=== PATIENT | female | born 1995 | race American Indian/Alaskan Native ===

== ENCOUNTER 2016-08-15 20:42 | Emergency (ER) | payer MEDICAID ==
[2016-08-15 20:42] VITALS: BMI 37.1
[2016-08-15 20:55] VITALS: BP 140/78; PULSE 93; RESP 18; TEMP 98.1; O2SAT 99
--- NOTE | 2016-08-15 21:11 | ED PDOC ---
Arrival/HPI - General Historian: Patient - History of Present Illness Time/Duration: 24 hours Symptom Course: Unchanged <María Elena Ho - Last Filed: 08/15/16 21:56> <Golden Humphreys - Last Filed: 08/15/16 22:09> - General Chief Complaint: Female Genitourinary Time Seen by Provider: 08/15/16 20:56 - History of Present Illness Narrative History of Present Illness (Text): 08/15/16 21:07 20 yo F w h/o previous UTIs and vaginal yeast infections presents with dysuria, frequency and hematuria x 1 day. Patient states she started feeling dysuria yesterday, some small amount of pinkish blood with urination and urinary frequency since this morning. Patient states she has had multiple UTIs in the past, last UTI 6 months ago. Patient denies vaginal discharge or bleeding. First day LMP 08/07/2016. Patient states her symptoms feel just like previous UTIs and states she has had blood in her urine with previous UTIs as well. Admits to mild suprapubic abdominal pain. Has not taken anything to help with symptoms. Patient states last abx was 6 months ago, has not been on abx since that time. Patient has a PMD but states she did not see him because she didnt think he could treat a UTI. Patient denies CP, SOB, n/v/d/c, fevers, chills, edema, rashes, headache, dizziness, confusion. (María Elena Ho) Past Medical History - Infectious Disease Hx of Infectious Diseases: None - Tetanus Immunization Tetanus Immunization: Unknown - Pulmonary Hx Respiratory Disorders: No - Psychiatric Hx Depression: No Hx Substance Use: Yes - Surgical History Hx Dilation and Curettage: Yes Hx Tonsillectomy: Yes - Anesthesia Hx Anesthesia: Yes Hx Anesthesia Reactions: No Hx Malignant Hyperthermia: No - Suicidal Assessment Feels Threatened In Home Enviroment: No <María Elena Ho - Last Filed: 08/15/16 21:56> Family/Social History - Physician Review Nursing Documentation Reviewed: Yes Family/Social History: No Known Family HX Smoking Status: Light Smoker < 10 Cigarettes Daily Hx Alcohol Use: Yes Hx Substance Use: Yes Hx Substance Use Treatment: No <María Elena Ho - Last Filed: 08/15/16 21:56> Allergies/Home Meds <María Elena Ho - Last Filed: 08/15/16 21:56> <Golden Humphreys - Last Filed: 08/15/16 22:09> Allergies/Adverse Reactions: Allergies No Known Allergies Allergy (Verified 08/08/15 20:36) Medical Decision Making <María Elena Ho - Last Filed: 08/15/16 21:56> <Golden Humphreys - Last Filed: 08/15/16 22:09> ED Course and Treatment: 08/15/16 21:46 20 yo F w UTI. Will treat with 10 days Macrobid. Gave one dose tylenol for mild abdominal pain. Patient requests diflucan in case she develops yeast infection, which she has had in the past after antibiotics. Risks of diflucan use, including but not limited to liver damage, abdominal pain, nausea, headache, dizziness, palpitations, etc. discussed with patient. She verbalizes understanding of risks and (María Elena Ho) 08/15/16 22:07 Patient seen and examined with biomedical engineering internship. Treatment plan developed together. Patient is afebrile, nontoxic appearing. Mild suprapubic pain. NO cva tenderness. Tolerating po. UA suggestive of UTI. Denies vaginal discharge or lesions. Stressed need for urology follow-up, discussed antibiotic choice as well as follow-up of urine culture. Risks/side effects of prescribed medication d/w patient, advised urology and gynecology follow-up. (Golden Humphreys) - Lab Interpretations Lab Results: Lab Results 08/15/16 20:55: Urine Color Yellow, Urine Appearance Cloudy, Urine pH 7.0, Ur Specific [place] 1.020, Urine Protein 30 H, Urine Glucose (UA) Negative, Urine Ketones Trace H, Urine Blood Large H, Urine Nitrate Negative, Urine Bilirubin Negative, Urine Urobilinogen 0.2, Ur Leukocyte Esterase Large H, Urine RBC Tntc , Urine WBC Tntc, Ur Epithelial Cells 0 - 2, Urine Bacteria Many, Urine HCG, Qual Negative - Medication Orders Current Medication Orders: Discontinued Medications Acetaminophen (Tylenol 325mg Tab) 650 mg PO STAT STA Stop: 08/15/16 21:22 Last Admin: 08/15/16 21:50 Dose: 650 mg Nitrofurantoin Macrocrystals (Macrobid) 100 mg PO ONCE ONE Stop: 08/15/16 21:38 Last Admin: 08/15/16 21:50 Dose: 100 mg - PA / CELERY STRIPPER / Resident Statement / has reviewed & agrees with the documentation as recorded. / has examined the patient and agrees with the treatment plan. <Golden Humphreys - Last Filed: 08/15/16 22:09> Disposition/Present on Arrival - Present on Arrival Any Indicators Present on Arrival: No History of DVT/PE: No History of Uncontrolled Diabetes: No Urinary Catheter: No History of Decub. Ulcer: No History Surgical Site Infection Following: None - Disposition Have Diagnosis and Disposition been Completed?: Yes Disposition Time: 21:22 Patient Plan: Discharge <María Elena Ho - Last Filed: 08/15/16 21:56> <Golden Humphreys - Last Filed: 08/15/16 22:09> - Disposition Diagnosis: UTI (urinary tract infection) Disposition: HOME/ ROUTINE Patient Problems: Current Active Problems Problem Status Onset UTI (urinary tract infection) Acute Condition: STABLE Discharge Instructions (ExitCare): Urinary Tract Infection in Women (ED) Print Language: NEPALESE Additional Instructions: Please followup with your primary care physician within 1-3 days. Finish the antibiotics, do not skip doses, take exactly as directed. Please followup with Gynecology or at the gynecology clinic, or Dr. Sandoval, within 1-3 days. Gynecology: Neida Swan MD [address] [place] [address] Prescriptions: Fluconazole [Diflucan] 150 mg PO ONCE #1 tab Nitrofurantoin Macrocrystals [Macrobid] 100 mg PO BID #20 cap Referrals: Colleen Kennedy MD [Primary Care Provider] - Follow up with primary
[2016-08-15 21:15] LABS: URINE BILIRUBIN NEGATIVE (NEGATIVE); URINE BLOOD LARGE (NEGATIVE); URINE GLUCOSE (UA) NEGATIVE (NEGATIVE); URINE KETONE TRACE mg/dL (NEGATIVE); URINE LEUKOCYTE ESTERASE LARGE Leu/uL (NEGATIVE); URINE PROTEIN 30 mg/dL (<30 mg/dL); URINE UROBILINOGEN 0.2 E.U./dL (<1 E.U./dL)
[2016-08-15 21:16] LABS: URINE APPEARANCE CLOUDY (CLEAR); URINE COLOR YELLOW (YELLOW)
[2016-08-15 21:46] LABS: URINE RBC TNTC /hpf (0-2); URINE WBC TNTC /hpf (0-6)
[2016-08-15 21:47] LABS: URINE BACTERIA MANY (NEG); URINE EPITHELIAL CELLS 0 - 2 /hpf (0-5)
== END 2016-08-15 22:13 | disposition home or self-care (01) ==
LOC: ED 20:42
DX: N39.0 Urinary tract infection, site not specified (principal)

== ENCOUNTER 2016-08-20 20:56 | Emergency (ER) | payer MEDICAID ==
[2016-08-20 20:57] VITALS: BMI 37.1
--- NOTE | 2016-08-20 21:17 | ED PDOC ---
Arrival/HPI - General Time Seen by Provider: 08/20/16 21:05 Historian: Patient - History of Present Illness Narrative History of Present Illness (Text): 08/20/16 21:14 Sherron Vaz is a 20 year old female, whose past medical history includes frequent UTIs, who presents to the Emergency department complaining of dysuria with associated suprapubic pain, hematuria, and urinary frequency for the past few days. Patient states she was seen in the Emergency department on 2016for similar complaints and placed on Macrobid for a UTI. Patient states symptoms did not improve on Macrobid and she followed up with her PMD who prescribed Amoxicillin. Patient states she has been taking medication as prescribed but symptoms persist. Patient states she has also been experiencing cold-like symptoms and nasal congestion. Patient denies any fever, chills, chest pain, shortness of breath, nausea, vomiting, diarrhea, back pain, neck pain, headache, dizziness, or any other complaints. Time/Duration: Other (few days) Symptom Onset: Gradual Symptom Course: Unchanged Activities at Onset: Rest, Light Context: Home Past Medical History - Provider Review Nursing Documentation Reviewed: Yes - Infectious Disease Hx of Infectious Diseases: None - Tetanus Immunization Tetanus Immunization: Unknown - Pulmonary Hx Respiratory Disorders: No - Psychiatric Hx Depression: No Hx Substance Use: Yes - Surgical History Hx Dilation and Curettage: Yes Hx Tonsillectomy: Yes - Anesthesia Hx Anesthesia: Yes Hx Anesthesia Reactions: No Hx Malignant Hyperthermia: No - Suicidal Assessment Feels Threatened In Home Enviroment: No Family/Social History - Physician Review Nursing Documentation Reviewed: Yes Family/Social History: No Known Family HX Smoking Status: Light Smoker < 10 Cigarettes Daily Hx Alcohol Use: Yes Hx Substance Use: Yes Hx Substance Use Treatment: No Allergies/Home Meds Allergies/Adverse Reactions: Allergies No Known Allergies Allergy (Verified 08/08/15 20:36) Review of Systems - Physician Review All systems were reviewed & negative as marked: Yes - Review of Systems Constitutional: Normal Eyes: Normal ENT: Rhinorrhea Respiratory: Normal Cardiovascular: Normal Gastrointestinal: Abdominal Pain Genitourinary Female: Dysuria, Frequency, Hematuria Musculoskeletal: Normal. absent: Back Pain, Neck Pain Skin: Normal. absent: Rash Neurological: Normal. absent: Headache, Dizziness Endocrine: Normal Hemo/Lymphatic: Normal Psychiatric: Normal Physical Exam Vital Signs Reviewed: Yes Vital Signs Temp Pulse Resp BP Pulse Ox 08/21/16 00:25 92 H 16 104/55 L 98 08/20/16 21:22 99.2 F 91 H 18 138/62 95 Temperature: Afebrile Blood Pressure: Normal Pulse: Regular Respiratory Rate: Normal Appearance: Positive for: Well-Appearing, Non-Toxic, Comfortable Pain Distress: None Mental Status: Positive for: Alert and Oriented X 3 - Systems Exam Head: Present: Atraumatic, Normocephalic Pupils: Present: PERRL Extroacular Muscles: Present: EOMI Conjunctiva: Present: Normal Mouth: Present: Moist Mucous Membranes Nose (Internal): Present: Rhinorrhea Neck: Present: Normal Range of Motion Respiratory/Chest: Present: Clear to Auscultation, Good Air Exchange. No: Respiratory Distress, Accessory Muscle Use Cardiovascular: Present: Regular Rate and Rhythm, Normal S1, S2. No: Murmurs Abdomen: Present: Normal Bowel Sounds. No: Tenderness, Distention, Peritoneal Signs Back: Present: Normal Inspection Upper Extremity: Present: Normal Inspection. No: Cyanosis, Edema Lower Extremity: Present: Normal Inspection. No: Edema Neurological: Present: GCS=15, CN II-XII Intact, Speech Normal Skin: Present: Warm, Dry, Normal Color. No: Rashes Psychiatric: Present: Alert, Oriented x 3, Normal Insight, Normal Concentration Medical Decision Making ED Course and Treatment: 08/20/16 21:14 Impression: 20 year old female complaining of suprapubic pain, dysuria, urinary frequency, and hematuria. Pt also c/p cold-like symptoms. Differential Diagnosis include but are not limited to: UTI Plan: -- Labs -- Urinalysis -- Reassess and disposition Prior Visits: Notes and results from previous visits were reviewed. On 08/15/2016, pt was seen in the Emergency department for dysuria, frequency, hematuria. Pt was d/c home on Macrobid. Progress Notes: - Lab Interpretations Lab Results: 08/20/16 22:45 08/20/16 22:45 Lab Results 08/20/16 22:45: WBC 4.8, RBC 4.63, Hgb 12.5, Hct 36.7, MCV 79.3 L, MCH 27.0, MCHC 34.1, RDW 13.5, Plt Count 157, MPV 11.4 H 08/20/16 22:45: Sodium 135, Potassium 3.9, Chloride 100, Carbon Dioxide 24, Anion Gap 15, BUN 7, Creatinine 0.6, Est GFR ( Amer) > 60, Est GFR (Non- Af Amer) > 60, Random Glucose 80, Calcium 8.7, Total Bilirubin 0.4, AST 25, ALT 26, Alkaline Phosphatase 72, Total Protein 7.4, Albumin 3.8, Globulin 3.6, Albumin/Globulin Ratio 1.1 08/20/16 21:01: Urine Color Yellow, Urine Appearance Sl cloudy, Urine pH 7.0, Ur Specific [place] 1.020, Urine Protein 100 H, Urine Glucose (UA) Negative, Urine Ketones 15 H, Urine Blood Large H, Urine Nitrate Negative, Urine Bilirubin Small H, Urine Urobilinogen 1.0 H, Ur Leukocyte Esterase Negative, Urine RBC 1 - 3, Urine WBC 0 - 2, Ur Epithelial Cells 3 - 4, Urine Bacteria Mod , Urine HCG, Qual Negative - Medication Orders Current Medication Orders: Pseudoephedrine HCl (Sudafed Tab) 30 mg PO ONCE ONE Stop: 08/21/16 00:39 - Scribe Statement The provider has reviewed the documentation as recorded by the Marion Brower Provider Attestation: All medical record entries made by the Merlyiblauren were at my direction and personally dictated by me. I have reviewed the chart and agree that the record accurately reflects my personal performance of the history, physical exam, medical decision making, and the department course for this patient. I have also personally directed, reviewed, and agree with the discharge instructions and disposition. Disposition/Present on Arrival - Present on Arrival Any Indicators Present on Arrival: No History of DVT/PE: No History of Uncontrolled Diabetes: No Urinary Catheter: No History of Decub. Ulcer: No History Surgical Site Infection Following: None - Disposition Have Diagnosis and Disposition been Completed?: Yes Diagnosis: URI (upper respiratory infection), UTI (urinary tract infection) Disposition: HOME/ ROUTINE Disposition Time: 00:40 Patient Plan: Discharge Condition: IMPROVED Additional Instructions: Stop Amoxil/Take meds as prescribed/follow up with your doctor this week Prescriptions: Fexofenadine/Pseudoephedrine [Ирина-D 12 Hour Tablet] 1 each PO BID PRN #20 tab.er.12h PRN Reason: Nasal Congestion Cephalexin [cephalexin] 500 mg PO BID #14 cap Referrals: Colleen Kennedy MD [Primary Care Provider] - Follow up with primary
[2016-08-20 21:22] VITALS: TEMP 99.2
[2016-08-20 21:47] LABS: URINE BILIRUBIN SMALL (NEGATIVE); URINE BLOOD LARGE (NEGATIVE); URINE GLUCOSE (UA) NEGATIVE (NEGATIVE); URINE KETONE 15 mg/dL (NEGATIVE); URINE LEUKOCYTE ESTERASE NEGATIVE Leu/uL (NEGATIVE); URINE PROTEIN 100 mg/dL (<30 mg/dL)
[2016-08-20 21:56] LABS: URINE APPEARANCE SL CLOUDY (CLEAR); URINE COLOR YELLOW (YELLOW)
[2016-08-20 22:10] LABS: URINE BACTERIA MOD (NEG); URINE WBC 0 - 2 /hpf (0-6)
[2016-08-20 23:15] LABS: ALB/GLOB RATIO 1.1 (1.1-1.8); ALKALINE PHOSPHATASE 72 U/L (38-133); ALT/SGPT 26 U/L (7-56); AST/SGOT 25 U/L (15-39); BILIRUBIN,TOTAL 0.4 mg/dL (0.2-1.3); BLOOD UREA NITROGEN 7 mg/dL (7-21); CALCIUM 8.7 mg/dL (8.4-10.5); CARBON DIOXIDE 24 mmol/L (21-33); CHLORIDE 100 mmol/L (98-107); GFR AFRICAN-AMERICAN > 60; GLUCOSE,RANDOM 80 mg/dL (70-110); POTASSIUM 3.9 mmol/L (3.6-5.0); SODIUM 135 mmol/L (132-148); TOTAL PROTEIN 7.4 g/dL (5.8-8.3)
[2016-08-20 23:16] LABS: HEMATOCRIT 36.7 % (36.0-48.0); MEAN CELL VOLUME 79.3 fL (80.0-105.0); MEAN CORPUSCULAR HGB CONC 34.1 g/dl (31.0-37.0); MEAN PLATELET VOLUME 11.4 fl (7.0-11.0); RED CELL DISTRIBUTION WIDTH 13.5 % (11.5-14.5); WHITE BLOOD COUNT 4.8 10^3/ul (4.5-11.0)
[2016-08-21 00:26] VITALS: BP 104/55; PULSE 92; RESP 16; O2SAT 98
== END 2016-08-21 01:05 | disposition home or self-care (01) ==
LOC: ED 20:56
DX: N39.0 Urinary tract infection, site not specified (principal); J06.9 Acute upper respiratory infection, unspecified